=== PATIENT | male | born 1955 | race Caucasian/White ===

== ENCOUNTER 2023-07-04 09:03 | Emergency (ER) | payer OTHER, SELFPAY ==
[2023-07-04] VITALS (8 sets, daily range): BP systolic 122–183; BP diastolic 75–103; BMI 43.1
--- NOTE | 2023-07-04 09:58 | EDRN ---
Sydnie DENNY in room w/ pt at this this time.
--- NOTE | 2023-07-04 10:08 | ED.GENMED ---
History of Present Illness
<Debbie Magallanes PA-C - Last Filed: 07/04/23 18:00>
General
Chief Complaint: Blood Pressure Problem
Source: patient
Exam Limitations: none
Time Seen by Provider: 07/04/23 09:47
Nursing documentation reviewed up to this point in time: agreed with
Travel History
Have you had any contact with someone who has COVID-19?: No
Do you have any symptoms of coronavirus? Fever > 100 degrees, chills, cough, shortness of breath, sore throat, loss of taste or smell, muscle aches, or headache?: No
History of Present Illness
History of Present Illness:
68-year-old male with a history of hypertension on benazepril 10 mg twice daily for 2 years presents for feeling not well since last night. He says he was feeling a subtle chest tightness and a little short of breath which got worse when he tried
to lay down. He says he felt 'funny' in his head and is describing a feeling of lightheadedness at times. He had a lot of difficulty sleeping and was pacing in his room and feeling quite nervous. This morning he checked his blood pressure and it
read 160s over 90s which is high for him. He checks his blood pressure about 3-4 times a week and normally his readings are in the 130s over 80s. He last checked it 2 days ago and that was the reading then. He cannot think of any triggers for his
blood pressure being elevated, he has not had any significant stressors. Patient has not had any recent long travel, history of DVT or PE and he denies any pleuritic chest discomfort. His chest tightness is mild and it is a 2 or 3 out of 10. He
does not feel it ripping through to his back, he denies any nausea, arm pain, jaw pain, diaphoresis, vomiting.
Patient has a headache which is about 6 out of 10 and he did take ibuprofen this morning at 730, 400 mg which did not help. He has no vision changes.
Patient drinks daily alcohol, probably 2 drinks of bourbon a day which is usually about 4 ounces
Past History
<Debbie Magallanes PA-C - Last Filed: 07/04/23 18:00>
Past History
ED Past Medical History: Seizures
ED Past Surgical History: Appendectomy and Orthopedic
Social History
Tobacco: Non-smoker
Alcohol: Occasional
Drug: None
Personal:
Living: with family
Employment: Employed
Family History
Family History: Other (unremarkable for seizures)
Review of Systems
<ESTRELLITA Treviño Last Filed: 07/04/23 18:00>
Review of Systems
Allergies reviewed?: Yes
All Other Systems: Not applicable
Phy Exam
<ESTRELLITA Treviño Last Filed: 07/04/23 18:00>
Physical Exam
Physical Exam:
GENERAL: Alert , in no apparent distress
EYE: pupils equal and reactive
NECK: Supple
ENT: o/p clr, mmm.
CARDIAC: Regular rate and rhythm, no edema
LUNGS: Clear breath sounds bilaterally, no acute respiratory distress, no wheezes/rales/rhonchi
ABDOMEN: Soft, without focal tenderness, no r/g, no cvat, normal bowel sounds
NEUROLOGICAL: Alert and oriented, no focal neuro deficits
SKIN: Warm and dry, skin intact.
MUSCULOSKELETAL: No edema, well perfused. neg meaghan's sign
PSYCH: Normal and appropriate interaction.
Course
<Debbie Magallanes PA-C - Last Filed: 07/04/23 18:00>
Orders/Labs/Results
Orders:
Orders
07/04/23 09:07
EKG [Electrocardiogram (*1)] Urgent
Reason for Study: Hypertension, Benign
EKG- Treatment ONCE
07/04/23 10:04
Acetaminophen [Tylenol] 650 mg PO NOW STA
07/04/23 10:05
CR Chest - 2 Views Urgent
Comment:
Reason For Exam: htn, chest tightness
07/04/23 10:12
Complete Blood Count/With Diff Urgent
Comprehensive Metabolic Panel Urgent
NT-proBNP Urgent
Troponin I Urgent
07/04/23 11:39
Lorazepam [Ativan] 1 mg PO NOW STA
07/04/23 12:34
Electrocardiogram (*1) Urgent
Reason for Study: Shortness of Breath
EKG- Treatment ONCE
07/04/23 13:12
Troponin I Urgent
Abnormal Lab Results
07/04/23
10:12
MCH 31.1 H pg
(27.0-31.0)
Chloride 108 H mmol/L
(98-107)
BUN 21 H mg/dl
(9-20)
Glucose 135 H mg/dl
(70-99)
Calcium 10.6 H mg/dl
(8.4-10.2)
07/04/23 10:12
07/04/23 10:12
Vital Signs
Initial and Last Documented VS:
Initial Vital Signs
Temp Pulse Resp BP Pulse Ox
98.8 F 72 17 183/100 98
07/04/23 09:06 07/04/23 09:06 07/04/23 09:06 07/04/23 09:06 07/04/23 09:06
Last Documented Vital Signs
Temp Pulse Resp BP Pulse Ox
98.8 F 64 17 157/89 95
07/04/23 09:06 07/04/23 14:00 07/04/23 14:00 07/04/23 14:00 07/04/23 14:00
<Carmela Steen MD - Last Filed: 07/04/23 12:42>
Orders/Labs/Results
Orders:
Orders
07/04/23 09:07
EKG [Electrocardiogram (*1)] Urgent
Reason for Study: Hypertension, Benign
EKG- Treatment ONCE
07/04/23 10:04
Acetaminophen [Tylenol] 650 mg PO NOW STA
07/04/23 10:05
CR Chest - 2 Views Urgent
Comment:
Reason For Exam: htn, chest tightness
07/04/23 10:12
Complete Blood Count/With Diff Urgent
Comprehensive Metabolic Panel Urgent
NT-proBNP Urgent
Troponin I Urgent
07/04/23 11:39
Lorazepam [Ativan] 1 mg PO NOW STA
07/04/23 12:34
Electrocardiogram (*1) Urgent
Reason for Study: Shortness of Breath
EKG- Treatment ONCE
07/04/23 13:12
Troponin I Urgent
Abnormal Lab Results
07/04/23
10:12
MCH 31.1 H pg
(27.0-31.0)
Chloride 108 H mmol/L
(98-107)
BUN 21 H mg/dl
(9-20)
Glucose 135 H mg/dl
(70-99)
Calcium 10.6 H mg/dl
(8.4-10.2)
07/04/23 10:12
07/04/23 10:12
Vital Signs
Initial and Last Documented VS:
Initial Vital Signs
Temp Pulse Resp BP Pulse Ox
98.8 F 72 17 183/100 98
07/04/23 09:06 07/04/23 09:06 07/04/23 09:06 07/04/23 09:06 07/04/23 09:06
Last Documented Vital Signs
Temp Pulse Resp BP Pulse Ox
98.8 F 64 17 157/89 95
07/04/23 09:06 07/04/23 14:00 07/04/23 14:00 07/04/23 14:00 07/04/23 14:00
<Debbie Magallanes PA-C - Last Filed: 07/04/23 18:00>
MDM/Problems Addressed
Differential Diagnosis Includes:
hypertensive urgency, acs, anxiety,
MDM/Problems Addressed:
68 y/o M with h/o htn on meds
here with symptoms of 'not feelign rigth' since last night, some mild chest tighrtness and the urge to take deeper breaths, and anxiety
pt has not had any exertional cp or sob or pleuritic pain, no h/o dvt/pe, no cancer, no recent long travel or surgery
was supposed to go on a cruise today which his had to cancel
he took his bp this morning and it was 160/90 which is much hiugher than normal so he came in
pt appears mildly anxious
his initial bps were 170/100 but it came down to 130/80s symmetric, both arms without intervention
ekg shows a t wave inv v2, v3 which he has had previously in 2015 but then normalized in 2017
though in 2015 it was more biphasic than downward
1st trop was neg
cxr clera
pt still symptomatic
he has a pulse ox with a poor pleth; comes to 97% but then down to low 90s with bad wave form
seen by ed attending 1230 - reocmmedns repeating ekg and trop and will give a dose of ativan for anxiety and reassess
1330
complete resoluation of chest tightness with ativan;
feels well enough to go home.
<Debbie Magallanes PA-C - Last Filed: 07/04/23 18:00>
*Critical Care Note
Total Time (30-74mins, 75-104mins- exclusive of procedures): Not Applicable
ED Attending Note
<Debbie Magallanes PA-C - Last Filed: 07/04/23 18:00>
-
Portions of this chart may have been created with voice recognition software.� Occasional wrong word or��sound alike� substitutions may have occurred due to the inherent limitations of voice recognition software.
<Carmela Steen MD - Last Filed: 07/04/23 12:42>
ED Attending Note
Patient seen and examined by attending physician: Yes
I performed the substantive portion of visit, reviewed & personally made and approve the management plan that is documented in note by myself or ANNIE.: Yes
ED Attending Note:
68 yr old male with c/o chest tightness, trouble sleeping, elevated bp. Extensive w/u here, low suspicion for dissection/pe/acs/pericarditis/myocarditis, etc. Acknowledges he also feels anxious. Here in ED, his h/a has reduced markedly, bp now
normal. Still has vague chest tightness and feels like he needs to really take a deep breathe, not breahtless/sob, no pleuritic cp, no identifiable PE r/f. ECG unremkarable for acs. Will repeat ecg and troponin
Discharge Plan
Departure
Patient Disposition: Home (Routine Discharge)
Date of Disposition: 07/04/23
Time of Disposition: 13:52
Patient with high blood pressure during this ER visit?: Yes
Condition: Fair
Discharge Problem:
Chest tightness, Anxiety
Instructions: High Blood Pressure (DC), Anxiety, Adult (DC)
Prescriptions:
No Action
benazepril 20 mg Tablet
20 mg PO BID
rosuvastatin 10 mg Tablet
10 mg PO DAILY
omega [id number] oil [Fish Oil] 1,000 mg (120 mg-180 mg) Capsule
1 cap PO DAILY
turmeric 400 mg Capsule
400 mg PO DAILY
Referrals:
Marley Martinez MD [Family Provider] - Follow up in 2-3 days
Activity Restrictions/Additional Instructions:
YOUR BLOOD PRESSURE WAS ELEVATED INITIALLY BUT IT CAME DOWN TO YOUR NORMAL RANGE WITHOUT TREATMENT
YOUR WORK UP HERE SHOWED THAT YOU HAD NO SIGNS OF HEART ATTACK, YOUR CHEST XRAY WAS CLEAR, AND YOU HAD IMPROVEMENT IN YOUR SYMPTOMS WITH ANXIETY MEDICATION
PLEASE FOLLOW UP THIS WEEK WITH YOUR FAMILY DOCTOR FOR BLOOD PRESSURE CHECK
HAVE A LOW THRESHOLD FOR RETURNING, FOR SHORTNESS OF BREATH, PAINFUL BREATHING, LEG SWELLING, FEVER, PASSING OUT ETC
OTHERWISE FOLLOW UP WITH YOUR DOCTOR AND CARDIOLOGY NEEDED.
Interventions
Interventions:
*Risk Screen - Suicide Last Done: 07/04/23 10:04
*General Assessment Last Done: 07/04/23 10:04
*Neglect/Abuse Screening Last Done: 07/04/23 10:04
ED- Fall Risk Assessment Last Done: 07/04/23 10:04
*ED COVID-19 Vaccine History Last Done: 07/04/23 09:06
*Nursing Disposition Last Done: 07/04/23 14:13
ED- Cardiac Assessment Last Done: 07/04/23 10:30
ED- Neurological Assessment Last Done: 07/04/23 10:30
ED- Pulmonary Assessment Last Done: 07/04/23 10:30
Discharge Date and Time
Discharge Date/Time: 07/04/23 14:13
[2023-07-04 10:17] LABS: % Basophils 0.5 % (0-2); % Immature Granulocytes 0.2 % (0-0.5); % Lymphocytes 34.2 % (20.5-51.1); % Neutrophils 54.1 % (42.2-75.2); Absolute Eosinophils 0.1 10^3/uL (0-0.7); Absolute Lymphocytes 2.1 10^3/uL (1.2-3.4); Absolute Monocytes 0.6 10^3/uL (0.1-0.6); Absolute Neutrophils 3.3 10^3/uL (1.4-6.5); Hematocrit 43.9 % (39.0-52.0); Hemoglobin 15.8 g/dL (13.0-18.0); Mean Corpuscular Hgb 31.1 pg (27.0-31.0); Mean Corpuscular Volume 86.4 fL (80.0-94.0); Nucleated Red Blood Cells % 0 % (-); Platelet Count 181 10^3/uL (130-400); Red Blood Cell Count 5.08 10^6/uL (4.70-6.10); Red Cell Dist. Width 13.4 % (11.5-14.5); White Blood Cell Count 6.1 10^3/uL (4.8-10.8)
[2023-07-04 10:32] LABS: ALT (SGPT) 39 U/L (0-50); AST (SGOT) 33 U/L (17-59); Albumin 4.6 g/dl (3.5-5.0); Alkaline Phosphatase 85 U/L (38-126); Blood Urea Nitrogen 21 mg/dl (9-20); Calcium 10.6 mg/dl (8.4-10.2); Carbon Dioxide 22 mmol/L (22-30); Chloride 108 mmol/L (98-107); Estimated Creatinine Clearance 121 ml/min; Glucose 135 mg/dl (70-99); Potassium 3.9 mmol/L (3.5-5.1); Sodium 138 mmol/L (135-145); Total Protein 7.3 g/dl (6.3-8.2); eGFR > 60.00
[2023-07-04 10:42] LABS: NT-proBNP 33.3 pg/ml; Troponin I < 0.012 ng/ml
[2023-07-04] MEDS: TYLENOL 650 MG PO (10:51)
[2023-07-04] MEDS: ATIVAN 1 MG PO (12:33)
[2023-07-04 13:42] LABS: Troponin I < 0.012 ng/ml
== END 2023-07-04 14:13 | disposition home or self-care (01) ==
LOC: EMR 09:03
PROVIDERS: Physician Assistant; EMERGENCY PHYSICIAN Emergency Medicine; FAMILY PHYSICIAN Family Medicine
DX: R07.89 Other chest pain (principal); F41.9 Anxiety disorder, unspecified; I10 Essential (primary) hypertension
CPT/HCPCS: 99285; 71046; 80053; 83880; 84484; 85025; 93005